=== PATIENT | female | born 1980 | race Caucasian/White ===

== ENCOUNTER 2018-01-13 13:15 | Emergency (ER) | payer OTHER ==
[2018-01-13 13:19] VITALS: BP 141/99; PULSE 79; TEMP 36.4; O2SAT 98; Ht 162.6 cm
[2018-01-13] MEDS ORDERED: IBUPROFEN 800 MG TAB PO STA (13:34)
[2018-01-13] MEDS ORDERED: SUMA50TA15 PO (13:57)
--- NOTE | 2018-01-13 13:58 | DIAGNOSTIC IMAGING REPORT ---
RIGHT FOOT 3 VIEWS CLINICAL HISTORY: Fall with right foot pain. FINDINGS: 3 views of the right foot are obtained. No prior studies are available for comparison at the time of dictation. The skeletal structures are well mineralized. No acute fracture is identified. An os trigonum is incidentally noted. A remote avulsion injury is suggested below the lateral malleolus. Dorsal soft tissue swelling is observed. IMPRESSION: Soft tissue swelling with no radiographic evidence of acute fracture. Electronically signed by: Issa De La Garza M.D. 01/13/2018 1:57 PM Dictated Date/Time: 01/13/2018 1:55 PM
--- NOTE | 2018-01-13 14:01 | DIAGNOSTIC IMAGING REPORT ---
R ANKLE MIN 3 VIEWS ROUTINE CLINICAL HISTORY: Lateral right ankle pain and swelling following fall. COMPARISON: None FINDINGS: A ossicles along the fibular tip measure up to 7 mm. This is likely old. There is marked lateral ankle soft tissue swelling. No acute fracture is identified. Talar dome is intact. IMPRESSION: 1. No acute fracture or dislocation within the right ankle. 2. Marked lateral ankle soft tissue swelling. 3. A few well-corticated ossicles along the fibular tip which suggest old injury. Electronically signed by: Renny Cueto M.D. 01/13/2018 2:00 PM Dictated Date/Time: 01/13/2018 1:53 PM
--- NOTE | 2018-01-13 14:02 | DIAGNOSTIC IMAGING REPORT ---
R TIBIA/FIBULA 2 VIEWS ROUTINE CLINICAL HISTORY: Right greene pain following fall. COMPARISON: None FINDINGS: No acute fracture within the right tibia or fibula is identified. Several well-corticated ossicles along the fibular tip suggests old injury. Marked lateral ankle soft tissue swelling is noted. IMPRESSION: 1. No acute fracture of the right tibia or fibula. 2. Marked lateral ankle soft tissue swelling. 3. A few well-corticated ossicles along the fibular tip which suggest old injury. Electronically signed by: Renny Cueto M.D. 01/13/2018 2:01 PM Dictated Date/Time: 01/13/2018 1:54 PM
--- NOTE | 2018-01-13 14:10 | EMERGENCY ROOM VISIT NOTE ---
ED Visit Note First contact with patient: 13:27 CHIEF COMPLAINT: Right Ankle pain HISTORY OF PRESENT ILLNESS: This 37 year old female patient presents to the emergency department, via private vehicle/wheelchair, approximately 3 hours after sustaining an injury to the right ankle and foot with a twisting, inversion motion while walking down a ramp with a carpet. The patient complains of pain along the outside of the ankle. The patient does report significant pain of the foot and radiating into the distal greene. The patient rates the pain as throbbing and 7/10. The patient has not been able to bear weight on the foot. Constant pain, worse with movement, weight bearing, and the dependent position. No knee pain, the patient is able to move their toes. No numbness or weakness of the foot, no laceration. The patient has not had a previous fracture to this ankle. The patient has taken no medications for the pain. The patient denies any other injury. REVIEW OF SYSTEMS: A 6 system review of systems was completed with positives and pertinent negatives listed in the HPI. ALLERGIES: Penicillin MEDICATIONS: None PMH: None SOCIAL HISTORY: The patient lives locally with family. She denies drug, alcohol , tobacco use. PHYSICAL EXAM: Vital Signs: Reviewed Nurse's notes, vital signs stable. GENERAL : This is a 37-year-old white female, no acute distress, but appears in pain, well-developed, well-nourished. MENTAL STATUS: Alert, oriented to person place and time, and cooperative. MUSCULOSKELETAL: The right ankle is swollen and tender over the lateral malleolus, but the skin is intact and there is no ligamentous instability. There is fifth metatarsal tenderness. There is tenderness over the rest of the foot. There is no calf pain, however there is distal tibia/fibular tenderness. There is no visual deformity. The foot and toes are warm and well-perfused. Dorsalis pedis pulse 2+. Sensation to pain and light touch is intact. Capillary refill less than 2 seconds. RADIOLOGY: R TIBIA/FIBULA 2 VIEWS ROUTINE CLINICAL HISTORY: Right greene pain following fall. COMPARISON: None FINDINGS: No acute fracture within the right tibia or fibula is identified. Several well-corticated ossicles along the fibular tip suggests old injury. Marked lateral ankle soft tissue swelling is noted. IMPRESSION: 1. No acute fracture of the right tibia or fibula. 2. Marked lateral ankle soft tissue swelling. 3. A few well-corticated ossicles along the fibular tip which suggest old injury. Electronically signed by: Renny Cueto M.D. 01/13/2018 2:01 PM Dictated Date/Time: 01/13/2018 1:54 PM R ANKLE MIN 3 VIEWS ROUTINE CLINICAL HISTORY: Lateral right ankle pain and swelling following fall. COMPARISON: None FINDINGS: A ossicles along the fibular tip measure up to 7 mm. This is likely old. There is marked lateral ankle soft tissue swelling. No acute fracture is identified. Talar dome is intact. IMPRESSION: 1. No acute fracture or dislocation within the right ankle. 2. Marked lateral ankle soft tissue swelling. 3. A few well-corticated ossicles along the fibular tip which suggest old injury. Electronically signed by: Renny Cueto M.D. 01/13/2018 2:00 PM Dictated Date/Time: 01/13/2018 1:53 PM RIGHT FOOT 3 VIEWS CLINICAL HISTORY: Fall with right foot pain. FINDINGS: 3 views of the right foot are obtained. No prior studies are available for comparison at the time of dictation. The skeletal structures are well mineralized. No acute fracture is identified. An os trigonum is incidentally noted. A remote avulsion injury is suggested below the lateral malleolus. Dorsal soft tissue swelling is observed. IMPRESSION: Soft tissue swelling with no radiographic evidence of acute fracture. Electronically signed by: Issa De La Garza M.D. 01/13/2018 1:57 PM Dictated Date/Time: 01/13/2018 1:55 PM EMERGENCY DEPARTMENT COURSE: I examined the patient. She is given ibuprofen for pain and ice pack. X-rays of the right ankle, foot, and tip/fib were reviewed by myself and read by radiology and reveal no acute fracture. A gel ankle splint was applied to the ankle under my direction and the position was satisfactory. Neurovascular status was rechecked and intact. The patient was instructed on the use of crutches. Discharge instructions reviewed. The patient was discharged home in good condition. I attest that I have personally reviewed the patient's current medication list. Patient was found to have normal blood pressure on screening and does not require follow-up. Etiologies such as soft tissue injury, fracture, dislocation, neurovascular compromise, compartment syndrome, as well as others were entertained. DIAGNOSIS: Right ankle sprain, right lower extremity contusion, right foot contusion The chart was completed utilizing [employer] Speech voice recognition software. Grammatical errors, random word insertions, pronoun errors, and incomplete sentences are an occasional consequence of this system due to software limitations, ambient noise, and hardware issues. Any formal questions or concerns about the content, text, or information contained within the body of this dictation should be directly addressed to the provider for clarification. Current/Historical Medications Scheduled PRN Sumatriptan Succinate (Imitrex), 50 MG PO PRN PRN for Migraine Allergies Coded Allergies: Amoxicillin (Unverified Allergy, Unknown, CHILDHOOD ALLERGY, 01/13/18) Penicillins (Unverified Allergy, Unknown, CHILDHOOD ALLERGY, 01/13/18) Vital Signs Date Time Temp Pulse Resp B/P (MAP) Pulse Ox O2 Delivery O2 Flow Rate FiO2 01/13/18 13:19 36.4 79 18 141/99 98 Room Air Medications Administered Medications (Trade) Dose Ordered Sig/Nikia Route Start Time Stop Time Status Last Admin Dose Admin Ibuprofen (Motrin Tab) 800 mg NOW STAT PO 01/13/18 13:34 01/13/18 13:35 DC 01/13/18 13:49 800 MG Departure Information Impression Primary Impression: Right ankle sprain Additional Impressions: Contusion of right foot Contusion of right lower leg, initial encounter Dispostion Home / Self-Care Condition GOOD Referrals No Doctor, Assigned (PCP) Sung Nelson M.D. Patient Instructions ED Contusion Lower Ext, ED Sprain Ankle, [facility] Additional Instructions You have been treated in the Emergency Department for an Ankle sprain. For pain control, you can use the following [id number] medicines (if >12 yo): Ibuprofen(Motrin, Advil) may be used for fever or pain. Use 600mg every six hours as needed. Take with food. Avoid using more than 2400mg in a 24 hour period. Do not use 2400mg per day for more than three consecutive days without physician direction. Prolonged inappropriate use can lead to stomach upset or ulcers. (AND/OR) Acetaminophen(Tylenol) may be used for fever or pain. Use 1000mg every six hours as needed. Avoid using more than 3000mg in a 24 hour period. If this is a recent injury (<24 hrs), ice can be applied to the area of pain for the first 3 days to help decrease pain and inflammation. You have been provided the number for an Orthopaedic Surgeon. You should call this number if no improvement within one week to establish a follow-up visit from today's Emergency Department visit. Keep the ankle brace/splint in place until symptoms improve. Use the crutches you have been provided to keep ALL weight off of the ankle until weight bearing is tolerable. Return to the Emergency Department if your current symptoms worsen despite treatment course outlined above, or if you develop any of the following symptoms : intractable pain despite aforementioned treatment course or new onset of numbness or tingling of the foot. Problem Qualifiers Primary Impression: Right ankle sprain Encounter type: initial encounter Involved ligament of ankle: unspecified ligament Qualified Codes: S93.401A - Sprain of unspecified ligament of right ankle, initial encounter Additional Impressions: Contusion of right foot Encounter type: initial encounter Qualified Codes: S90.31XA - Contusion of right foot, initial encounter
== END 2018-01-13 14:45 | disposition home or self-care (01) ==
LOC: C.EDB 13:17 → C.EDD 14:45
DX: S93.401A Sprain of unspecified ligament of right ankle, initial encounter (principal); S90.31XA Contusion of right foot, initial encounter; S80.11XA Contusion of right lower leg, initial encounter; X50.1XXA Overexertion from prolonged static or awkward postures, initial encounter; Y93.01 Activity, walking, marching and hiking; Y99.8 Other external cause status; Z88.0 Allergy status to penicillin; Z88.1 Allergy status to other antibiotic agents